=== PATIENT | female | born 1970 | race Caucasian/White ===

== ENCOUNTER 2019-02-05 22:06 | Observation (INO) | payer BC ==
[2019-02-05] MEDS ORDERED: MORPHINE SULFATE 4 MG/ML SYRINGE IM STA (23:05)
[2019-02-05] MEDS ORDERED: DIAZEPAM 5 MG TAB PO STA (23:52)
--- NOTE | 2019-02-06 00:23 | CT ---
EXAM: CT Thoracic Spine Without Intravenous Contrast CLINICAL HISTORY: Pain TECHNIQUE: Axial computed tomography images of the thoracic spine without intravenous contrast. CTDI is 0.085, 0.085, 8 mGy and DLP is 341.5 mGy- cm. This CT exam was performed using one or more of the following dose reduction techniques: automated exposure control, adjustment of the mA and/or kV according to patient size, and/or use of iterative reconstruction technique. COMPARISON: No relevant prior studies available. FINDINGS: Vertebrae: Age indeterminate but likely acute compression deformity of T8 and T11 with minimal height loss. Discs/spinal canal/neural foramina: No acute findings. No spinal canal stenosis. Soft tissues: Unremarkable. IMPRESSION: Age indeterminate but likely acute compression deformity of T8 and T11 with minimal height loss.
--- NOTE | 2019-02-06 00:29 | CT ---
EXAM: CT Chest Without Intravenous Contrast CLINICAL HISTORY: Pain TECHNIQUE: Axial computed tomography images of the chest without intravenous contrast. CTDI is 0.085, 0.085, 8 mGy and DLP is 341.5 mGy-cm. This CT exam was performed using one or more of the following dose reduction techniques: automated exposure control, adjustment of the mA and/or kV according to patient size, and/or use of iterative reconstruction technique. COMPARISON: No relevant prior studies available. FINDINGS: Lungs: Dependent atelectasis. Pleural space: Trace bilateral pleural effusions. No pneumothorax. Heart: Unremarkable. No cardiomegaly. No significant pericardial effusion. Bones/joints: Age-indeterminate, probably acute, compression deformities at T8 and T11 with minimal height loss. No dislocation. Soft tissues: Unremarkable. Vasculature: Unremarkable. No thoracic aortic aneurysm. Lymph nodes: Unremarkable. IMPRESSION: 1. Age-indeterminate, probably acute, compression deformities at T8 and T11 with minimal height loss. 2. Trace bilateral pleural effusions.
[2019-02-06] MEDS ORDERED: HYDROmorphone 1 MG/ML 1 ML SYRINGE IVP STA (00:53)
[2019-02-06] MEDS ORDERED: NALOXONE 0.4 MG/ML 1 ML VIAL IV PRN (00:54)
--- NOTE | 2019-02-06 00:54 | ED ---
Back Pain HPI - General Chief Complaint: Back Pain/Injury Stated Complaint: Back pain Time Seen by Provider: 02/05/19 22:29 Source: patient Limitations: no limitations - History of Present Illness Initial Comments: The patient is a 48 year old female who presents to the emergency room with complaint of a 2 week history of right-sided thoracic back pain. The patient denies any trauma. She admits the pain has been getting worse. She describes it as muscle spasms to the right of her spine. No history of back pain in the past. She denies any associated fevers or chills. She saw a chiropractor on the . States that after her manipulation she felt much worse. She called her doctor who told her to go to an urgent care to get imaging. She states she went to [facility] however they refused her x-rays as she did not have trauma. They did however provide her with prescriptions for pain medications. States she's been taking them as directed however they have not been helping her symptoms. She is not sure which medication they are. She does admit that the Toradol that she was provided at the urgent care did help only for a short period of time. She has been taking Motrin at home. She also took a Flexeril that she had which was old. States that it took the edge off. She has a appointment scheduled with her primary care physician on Wednesday however she states her pain was so bad that she had come in to the emergency room immediately. She denies any IV drug use. She denies any weakness of her upper or lower extremity. No unilateral numbness or tingling. No weakness in her legs. The pain is made worse with position changes. Denies any saddle anesthesia or bowel or bladder incontinence. No other alleviating, precipitating or modifying factors - Related Data Home Medications Medication Instructions Recorded Confirmed Cyclobenzaprine [Flexeril] 10 mg PO ONCE PRN 02/05/19 02/05/19 Ibuprofen [Motrin Ib] 800 mg PO TID PRN 02/05/19 02/05/19 Allergies Allergy/AdvReac Type Severity Reaction Status Date / Time No Known Allergies Allergy Verified 02/05/19 22:29 Review of Systems ROS Statement: Those systems with pertinent positive or pertinent negative responses have been documented in the HPI. ROS Other: All systems not noted in ROS Statement are negative. Past Medical History Past Medical History: No Reported History History of Any Multi-Drug Resistant Organisms: None Reported Past Surgical History: Section, Orthopedic Surgery Additional Past Surgical History / Comment(s): ovarian cyst Past Psychological History: No Psychological Hx Reported Smoking Status: Current every day smoker Past Alcohol Use History: Occasional Past Drug Use History: None Reported - Past Family History Mother Family Medical History: Diabetes Mellitus, Myocardial Infarction ([place]) Additional Family Medical History / Comment(s): of heart attack Father Family Medical History: Hyperlipidemia, Hypertension General Exam Limitations: no limitations General appearance: alert, in no apparent distress Head exam: Present: atraumatic, normocephalic, normal inspection Eye exam: Present: normal appearance, PERRL, EOMI. Absent: scleral icterus, conjunctival injection, periorbital swelling ENT exam: Present: normal exam, mucous membranes moist Neck exam: Present: normal inspection. Absent: tenderness, meningismus, lymphadenopathy Respiratory exam: Present: normal lung sounds bilaterally. Absent: respiratory distress, wheezes, rales, rhonchi, stridor Cardiovascular Exam: Present: regular rate, normal rhythm, normal heart sounds. Absent: systolic murmur, diastolic murmur, rubs, gallop, clicks GI/Abdominal exam: Present: soft, normal bowel sounds. Absent: distended, tenderness, guarding, rebound, rigid Extremities exam: Present: normal inspection, full ROM, normal capillary refill, other (The patient has 5 out of 5 muscle strength in her bilateral lower extremity to include her hip flexors, knee extensors, ankle and great toe dorsiflexors and plantar flexors. She has 2 out of 4 Achilles and patellar reflexes. Intact 2 point discrimination and soft touch over the medial, lateral, and dorsal aspect of the leg.). Absent: tenderness, pedal edema, joint swelling, calf tenderness Back exam: Present: normal inspection, tenderness, paraspinal tenderness, vertebral tenderness, other (The patient does have tenderness to the paraspinal musculature from T2 to T7. She also has spinous process tenderness in this region. No step-offs or deformities appreciated. No ecchymosis or rash.) Neurological exam: Present: alert, oriented X3, CN II-XII intact, reflexes normal Psychiatric exam: Present: normal affect, normal mood Skin exam: Present: warm, dry, intact, normal color. Absent: rash Course Vital Signs 02/05/19 22:07 Temperature 98.1 F Pulse Rate 71 Respiratory 18 Rate Blood Pressure 143/86 O2 Sat by Pulse 98 Oximetry Medical Decision Making - Medical Decision Making On arrival the patient was placed into room 13. I did provide the patient with 4 mg of IM morphine. I did recommend CT of the patient's thorax as well as her thoracic spine. The patient is reevaluated and continues to report muscle spasms. She is then given 5 mg of Valium. The patient was sent for imaging. Upon return the patient is still tearful in the exam room because of pain. I did obtain IV access and the patient was given 1 mg of Dilaudid. I discussed the results with the patient. Her imaging does demonstrate acute compression fractures of T8 and T11. The patient continues to have intractable back pain. Because of this I did recommend admission to the hospital. The patient is agreeable to this. She was admitted to Dr. Westfall service. Bridging orders were placed. I will consult Dr. Patterson to evaluate the patient the morning. I did place an order for a CBC, BMP and urinalysis. The patient remained in stable condition was transported to floor. - Differential Diagnosis Acute thoracic back pain, acute compression fractures, acute leukocytosis - Lab Data Result diagrams: 02/06/19 01:23 02/06/19 01:23 - Radiology Data Radiology results: report reviewed Disposition Clinical Impression: Thoracic back pain, Compression fracture Disposition: ADMITTED IP TO THIS [facility] Condition: Stable Is patient prescribed a controlled substance at d/c from ED?: No Decision to Admit Reason: Admit from EC Decision Date: 02/06/19 Decision Time: 00:54
[2019-02-06 01:38] LABS: Anion Gap 12 mmol/L; Blood Urea Nitrogen 14 mg/dL (7-17); Calcium 10.1 mg/dL (8.4-10.2); Carbon Dioxide 20 mmol/L (22-30); Chloride 105 mmol/L (98-107); Glucose 115 mg/dL (74-99); Potassium 4.2 mmol/L (3.5-5.1); Sodium 137 mmol/L (137-145)
[2019-02-06 01:44] LABS: Basophils # (A) 0.1 k/uL (0-0.2); Basophils % (A) 0 %; Eosinophils # (A) 0.4 k/uL (0-0.7); Eosinophils % (A) 3 %; HCT 38.1 % (34.0-46.0); HGB 12.9 gm/dL (11.4-16.0); Lymphocytes # (A) 2.8 k/uL (1.0-4.8); Lymphocytes % (A) 17 %; MCH 30.3 pg (25.0-35.0); MCV 89.2 fL (80.0-100.0); Mean Platelet Volume 7.2; Monocytes # (A) 0.7 k/uL (0-1.0); Monocytes % (A) 4 %; Neutrophils # (A) 12.9 k/uL (1.3-7.7); Neutrophils % (A) 76 %; Platelet Count 452 k/uL (150-450); RBC 4.27 m/uL (3.80-5.40); RDW 12.1 % (11.5-15.5)
[2019-02-06] MEDS: HYDROmorphone 1 MG/ML 1 ML SYRINGE IVP PRN ×7 (03:36→22:54)
[2019-02-06 10:03] LABS: Appearance,Urine Clear (Clear); Bilirubin,Urine Negative (Negative); Blood,Urine Negative (Negative); Color,Urine Yellow; Glucose,Urine (UA) Negative (Negative); Ketones,Urine Negative (Negative); Leukocyte Esterase,Urine Negative (Negative); Nitrite,Urine Negative (Negative); Protein,Urine Negative (Negative); Specific Gravity,Urine 1.012 (1.001-1.035); Urobilinogen,Urine <2.0 mg/dL (<2.0)
[2019-02-06] MEDS: PANTOPRAZOLE 40 MG/10 ML VIAL IVP SCH (14:49)
--- NOTE | 2019-02-06 15:20 | P.HPIM ---
History of Present Illness H&P Date: 02/06/19 Chief Complaint: Right-sided thoracic/back pain This is a 48-year-old female presented to the ER with right-sided thoracic/back pain, ongoing for 2 weeks in a patient who is nicotine dependent. Denies fall/trauma. Denies fever or chills. Apparently patient had gone to her chiropractor on January 30 with manipulation completed. No x-rays taken at that time. Continued having spasms of the midsection area. [facility]ceeded to [facility], no x-ray taken. Prescriptions given for pain management. Pain and spasms persisted. Began taking some Flexeril( prior RX) and Motrin with minimal improvement. Scheduled appointment with PCP, but unable to tolerate pain. Radiology films reporting compression fracture-possibly acute T 8 and T11. No bruising, no scratches visible. Worsens with position changes, denies incontinence or constipation. Denies loss of sensation. Received morphine, Valium, IV Dilaudid. Intractable back pain/spasms persisted. Orthopedic spinal surgery consulted. Review of Systems ROS Statement: Those systems with pertinent positive or pertinent negative responses have been documented in the HPI. ROS Other: All systems not noted in ROS Statement are negative. Past Medical History Past Medical History: No Reported History History of Any Multi-Drug Resistant Organisms: None Reported Past Surgical History: Section, Orthopedic Surgery Additional Past Surgical History / Comment(s): ovarian cyst Past Anesthesia/Blood Transfusion Reactions: No Reported Reaction Past Psychological History: No Psychological Hx Reported Smoking Status: Current every day smoker Past Alcohol Use History: Occasional Past Drug Use History: None Reported - Past Family History Mother Family Medical History: Diabetes Mellitus, Myocardial Infarction ([place]) Additional Family Medical History / Comment(s): of heart attack Father Family Medical History: Hyperlipidemia, Hypertension Medications and Allergies Home Medications Medication Instructions Recorded Confirmed Type Cyclobenzaprine [Flexeril] 10 mg PO ONCE PRN 02/05/19 02/05/19 History Ibuprofen [Motrin Ib] 800 mg PO TID PRN 02/05/19 02/05/19 History Allergies Allergy/AdvReac Type Severity Reaction Status Date / Time No Known Allergies Allergy Verified 02/05/19 22:29 Physical Exam Vitals: Vital Signs Temp Pulse Pulse Resp BP BP Pulse Ox 02/06/19 05:45 97 F L 109 H 18 122/71 95 02/06/19 03:34 98 20 02/06/19 02:54 98.4 F 98 20 122/75 98 02/06/19 02:30 98 20 02/05/19 22:07 98.1 F 71 18 143/86 98 Intake and Output 02/05/19 02/06/19 02/06/19 22:59 06:59 14:59 Intake Total 120 Balance 120 Intake: Amount of Fluid Infused ( 20 ml) Oral 100 Other: Voiding Method Bedpan # Voids 1 Weight 75.75 kg 76 kg PHYSICAL EXAM: VITAL SIGNS: As above GENERAL: Sitting up in bed, no acute distress HEENT: Conjunctivae normal. eyes normal. Oral mucosa moist NECK: No JVD. No thyroid enlargement. No LNs CARDIOVASCULAR: S1, S2 muffled. No murmur RESPIRATION: Breath sounds diminished in the bases. No rhonchi or crackles. No bronchial breathing. ABDOMEN: Soft, nontender . No guarding. no masses palpable. Bowel sounds heard. LEGS: No edema. no swelling PSYCHIATRY: Alert and oriented -3, mood and affect normal. NERVOUS SYSTEM: Cranial N 2-12 grossly normal. Moves all 4 limbs. No focal deficits. Strength and sensation grossly intact. Paraspinal /vertebral tenderness right midsection ( T6-T10). No lesions, no rash, no bruising, no scratches. Skin: no ulcer no rash Joints: No active swelling. No inflammation. Lymphatic system. No LN neck axilla or groin. Results CBC & Chem 7: 02/06/19 01:23 02/06/19 01:23 Labs: Abnormal Lab Results - Last 24 Hours (Table) 02/06/19 02/06/19 Range/Units 01:23 01:23 WBC 17.0 H (3.8-10.6) k/uL Plt Count 452 H (150-450) k/uL Neutrophils # 12.9 H (1.3-7.7) k/uL Carbon Dioxide 20 L (22-30) mmol/L Glucose 115 H (74-99) mg/dL Thrombosis Risk Factor Assmnt - Choose All That Apply Any of the Below Risk Factors Present?: Yes Each Factor Represents 1 point: Age 41-60 years, Obesity (BMI >25) Other Risk Factors: No Thrombosis Risk Factor Assessment Total Risk Factor Score: 2 Thrombosis Risk Factor Assessment Level: Low Risk Assessment and Plan Assessment: -Thoracic Back pain, compression fracture T8 and T11, possibly acute -Leukocytosis, possibly reactive -Ongoing nicotine dependence Plan: Continue on current medication regime ,PPI,monitoring and symptomatic treatment. Orthopedic spine surgery consulted with recommendations pending. Potential brace. Pain management. Further recommendations to follow. The impression and plan of care has been dictated as directed. : I performed a history and examination of this patient, discussed the same with the dictator. I agree with the dictator's note ,documented as a scribe. Any additional findings or plans will be noted. Time taken: 35 minutes
--- NOTE | 2019-02-06 16:03 | P.CNOR ---
<Sarabjit Reilly - Last Filed: 02/06/19 15:52> History of Present Illness - [facility] Consult date: 02/06/19 Requesting physician: Monse Sotelo Consult reason: fracture (T8 and T11 superior endplate compression fracture deformities), back pain (Thoracic back pain) History of present illness: Patient is a pleasant 48-year-old female who is seen and examined at the bedside for further evaluation of compression fracture deformities at T8 and T11. Patient states with the past 2 weeks she's had increased thoracic back pain without specific injury. She states she did have an episode approximately 2 weeks ago where she injured her right hand causing severe pain at which time she passed out due to the pain. Her family at the bedside states she had a seizure- like episode at that time when she passed out. She was not evaluated in the emergency department or other urgent care facility in regards to this seizure- like episode. She has not followed with her primary care provider. Her family states she has had seizure-like episodes previously when passing out due to pain. They are not sure if this incident is when her thoracic back pain started but she states her pain has been ongoing for approximately 2 weeks and cannot think of any other known injury. She does admit to further exacerbation of her pain following chiropractic manipulation. She has significant difficulty with mobility due to her pain. She feels severe spasms within her thoracic spine. She has difficulty with sitting and lying down. Her back pain is exacerbated with coughing and sneezing. She denies any lower extremity weakness or radiculopathy bilaterally. She has experienced some pain radiating around the ribs towards the anterior bilaterally. She presented to the emergency department on 02/05/[address] imaging of the thoracic spine did show evidence of compression fracture deformities at T8 and T11. She's had difficulty with pain control at the hospital without regularly dosing of narcotic pain medications. Her pain has been controlled with Dilaudid IV which has helped control her pain when given. She is not currently on a muscle relaxer. She denies any other specific notable medical diagnoses. Past Medical History Past Medical History: No Reported History History of Any Multi-Drug Resistant Organisms: None Reported Past Surgical History: Section, Orthopedic Surgery Additional Past Surgical History / Comment(s): ovarian cyst Past Anesthesia/Blood Transfusion Reactions: No Reported Reaction Past Psychological History: No Psychological Hx Reported Smoking Status: Current every day smoker Past Alcohol Use History: Occasional Past Drug Use History: None Reported - Past Family History Mother Family Medical History: Diabetes Mellitus, Myocardial Infarction ([place]) Additional Family Medical History / Comment(s): of heart attack Father Family Medical History: Hyperlipidemia, Hypertension Medications and Allergies Home Medications Medication Instructions Recorded Confirmed Type Cyclobenzaprine [Flexeril] 10 mg PO ONCE PRN 02/05/19 02/05/19 History Ibuprofen [Motrin Ib] 800 mg PO TID PRN 02/05/19 02/05/19 History Allergies Allergy/AdvReac Type Severity Reaction Status Date / Time No Known Allergies Allergy Verified 02/05/19 22:29 Physical Examination Physical exam: Patient is awake, alert, and oriented 3 Vital signs stable Good chest excursion with deep inspiration and expiration Abdomen soft nontender Examination of thoracic and lumbar spine reveals skin is intact with no abrasions, lacerations, or bruises; no erythema, purulence or signs of infection Significant pain with palpation over the mid to lower thoracic spine No specific pain on palpation over the lower lumbar spine Evidence of a tattoo along the midline of the lower lumbar spine Dorsiflexion, plantarflexion, and extensor hallucis longus positive sustained bilaterally Lower extremity strength positive sustained throughout range of motion but generally slower due to pain Patient changes positions slowly Patient is able to stand on toes and heels bilaterally but has difficulty No signs or symptoms of DVT; no calf pain Neurovascularly intact Results Pertinent studies: CT of the thoracic spine taken on 02/05/2019: T8 and T11 superior endplate compression fracture deformities with mild height loss which are age indeterminate but likely acute; no evidence of spinal canal stenosis CT chest without contrast taken on 02/05/2019: Compression fracture deformities at T8 and T11 with mild superior endplate height loss that are age determinant but probably acute; trace bilateral. No effusion - Labs Labs: Abnormal Lab Results - Last 24 Hours (Table) 02/06/19 02/06/19 Range/Units 01:23 01:23 WBC 17.0 H (3.8-10.6) k/uL Plt Count 452 H (150-450) k/uL Neutrophils # 12.9 H (1.3-7.7) k/uL Carbon Dioxide 20 L (22-30) mmol/L Glucose 115 H (74-99) mg/dL H & H 02/06/19 Range/Units 01:23 Hgb 12.9 (11.4-16.0) gm/dL Hct 38.1 (34.0-46.0) % Result Diagrams: 02/06/19 01:23 02/06/19 01:23 Assessment and Plan Assessment: Assessment: T8 and T11 acute compression fracture deformities without specific injury Intractable thoracic back pain Thoracic muscle spasm Thoracic radiculopathy (1) Compression fracture of T11 vertebra Current Visit: Yes Status: Acute Code(s): S22.080A - WEDGE COMPRESSION FRACTURE OF T11-T12 VERTEBRA, INIT SNOMED Code(s): 609710025 (2) Thoracic radiculopathy Current Visit: Yes Status: Acute Code(s): M54.14 - RADICULOPATHY, THORACIC REGION SNOMED Code(s): 72309463 (3) Compression fracture of T8 vertebra Current Visit: Yes Status: Acute Code(s): S22.060A - WEDGE COMPRESSION FRACTURE OF T7-T8 VERTEBRA, INIT SNOMED Code(s): 374794715 (4) Thoracic back pain Current Visit: Yes Status: Acute Code(s): M54.6 - PAIN IN THORACIC SPINE SNOMED Code(s): 520474513 (5) Spasm of thoracic back muscle Current Visit: Yes Status: Acute Code(s): M62.830 - MUSCLE SPASM OF BACK SNOMED Code(s): 311982454300545 Plan: Plan: 1. After physical examination of the patient, further discussion with the patient, and reviewing of imaging, we are currently planning to continue with conservative treatment at this time. She does have evidence of compression fracture deformities on imaging at T8 and T11. She does have pain with palpation of thoracic spine at approximately these levels. She does have difficulty any sort of mobilization due to her thoracic back pain. Her back pain is exacerbated with coughing and sneezing. It is difficult to determine the exact cause of her fractures as she does not have known specific injury but her symptoms appear to be acute in nature over the past 2 weeks. She does admit her pain has worsened following chiropractic manipulation. At this time, we will plan for bracing. A prescription has been written, signed, and provided to case management for a Spinomed TLSO brace. Once this brace has been delivered and fitted appropriately, patient should wear this brace while sitting upright at greater than 45, during increase activities, during ambulation. Brace does not have to be worn while lying in bed or when bathing. Once this brace has been delivered and fitted appropriately patient be cleared for discharge from orthopedic spine standpoint. We will plan have the patient follow-up in the outpatient setting approximately 2-3 weeks for further evaluation. At discharge she may follow-up with Sarabjit Reilly PA-C or Dr. Ervin Lawson at [facility]. 2. Continue pain control medications as prescribed 3. We will plan to prescribe Flexeril 10 mg 3 times a day as needed for muscle spasm 4. Patient will continue to be seen and examined by medicine 5. Patient has been discussed in detail with Dr. Ervin Lawson Time with Patient: Greater than 30 (Including obtaining history, physical ex amination, reviewing of imaging, and dictation.) <Carolynn Lawson - Last Filed: 02/06/19 16:20> Physical Examination Osteopathic Statement: *. No significant issues noted on an osteopathic structural exam other than those noted in the History and Physical/Consult. Results - Labs Labs: Abnormal Lab Results - Last 24 Hours (Table) 02/06/19 02/06/19 Range/Units 01:23 01:23 WBC 17.0 H (3.8-10.6) k/uL Plt Count 452 H (150-450) k/uL Neutrophils # 12.9 H (1.3-7.7) k/uL Carbon Dioxide 20 L (22-30) mmol/L Glucose 115 H (74-99) mg/dL H & H 02/06/19 Range/Units 01:23 Hgb 12.9 (11.4-16.0) gm/dL Hct 38.1 (34.0-46.0) % Result Diagrams: 02/06/19 01:23 02/06/19 01:23 Assessment and Plan Plan: The patient is seen and examined at bedside. She is in significant pain and is out of bed walking around her room. She says she has difficulty with any position and has to walk around from time to time. She feels she has severe spasms in her mid back. She does not remember specific incident but she did pass out and her feels like she may have had some sort of seizure activity but this is unconfirmed. She is uncertain of any specific trauma to her back in the past. She denies any changes in bowel bladder function denies any changes in her lower extremities. She does not have acute worsening with coughing and sneezing. Her images and computed tomography scan of her thoracic spine is reviewed. There is fracture lines at T8 and slight compression at T11. There does not appear to be any bone loss or distractive course at the vertebral bodies but difficult to ascertain her specific pain. Intractable thoracic back pain T8 and T11 compression deformities without specific etiology No neurologic change With the patient's severe symptoms I think that we need to obtain further imaging with MRI to rule out other process through her thoracic spine. We have ordered a brace and muscle relaxants which should help with spasms and some stability control. I reviewed the dictation above and discussed the case and imaging with Sarabjit Lopez as stated. We will continue to follow her closely and monitor test results.
[2019-02-06] MEDS: CYCLOBENZAPRINE 10 MG TAB PO PRN (16:14)
[2019-02-07] MEDS: HYDROmorphone 1 MG/ML 1 ML SYRINGE IVP PRN ×6 (04:26→22:54)
[2019-02-07] MEDS: CYCLOBENZAPRINE 10 MG TAB PO PRN ×3 (04:37→19:22)
[2019-02-07] MEDS: PANTOPRAZOLE 40 MG/10 ML VIAL IVP SCH (08:47)
[2019-02-07] MEDS ORDERED: DIAZEPAM 5 MG TAB PO STA (09:10)
[2019-02-07 09:34] LABS: Basophils # (A) 0.1 k/uL (0-0.2); Basophils % (A) 1 %; Eosinophils # (A) 0.4 k/uL (0-0.7); Eosinophils % (A) 2 %; HCT 41.5 % (34.0-46.0); HGB 13.5 gm/dL (11.4-16.0); Lymphocytes # (A) 3.4 k/uL (1.0-4.8); Lymphocytes % (A) 20 %; MCH 29.2 pg (25.0-35.0); MCHC 32.5 g/dL (31.0-37.0); MCV 89.6 fL (80.0-100.0); Mean Platelet Volume 7.2; Monocytes # (A) 0.6 k/uL (0-1.0); Monocytes % (A) 4 %; Neutrophils # (A) 12.3 k/uL (1.3-7.7); Neutrophils % (A) 72 %; Platelet Count 494 k/uL (150-450); RBC 4.63 m/uL (3.80-5.40); RDW 12.2 % (11.5-15.5)
[2019-02-07 09:58] LABS: Anion Gap 9 mmol/L; Blood Urea Nitrogen 11 mg/dL (7-17); Calcium 10.1 mg/dL (8.4-10.2); Carbon Dioxide 29 mmol/L (22-30); Chloride 101 mmol/L (98-107); Glucose 88 mg/dL (74-99); Potassium 5.3 mmol/L (3.5-5.1); Sodium 139 mmol/L (137-145)
[2019-02-07] MEDS ORDERED: DOCUSATE 100 MG CAP PO PRN (11:23)
--- NOTE | 2019-02-07 11:36 | MR ---
Thoracic spine MRI history: Compression fractures Correlation to CT scan 02/05/2018 Multiplanar multisequence imaging through the thoracic spine The superior endplate depressions at T8 and T11 are again noted. Intermediate signal noted on T1-weig hted images, mildly increased signal noted on T2-weighted sequences. Focal increased signal within th e T8 vertebral body to the left of midline T1 and T2-weighted sequences is compatible with hemangioma . There is no significant foraminal encroachment, spinal stenosis, or disc herniation. Disc spaces ar e maintained. Thoracic vertebral bodies are otherwise normal. Some facet arthropathy changes noted at the lower thoracic spine. Small bilateral pleural effusions are present and noted incidentally. Thor acic cord signal is maintained. IMPRESSION: Findings compatible with subacute superior endplate compression fractures.
--- NOTE | 2019-02-07 12:24 | P.PN ---
Progress Note - Text Progress Note Date: 02/07/19 Patient is a pleasant 48-year-old female who is seen and examined at the bedside for follow-up evaluation of compression fracture deformities at T8 and T11. Patient states with the past 2 weeks she's had increased thoracic back pain without specific injury. She states she did have an episode approximately 2 weeks ago where she injured her right hand causing severe pain at which time she passed out due to the pain. Her family at the bedside states she had a seizure- like episode at that time when she passed out. She was not evaluated in the emergency department or other urgent care facility in regards to this seizure- like episode. She has not followed with her primary care provider. Her family states she has had seizure-like episodes previously when passing out due to pain. They are not sure if this incident is when her thoracic back pain started but she states her pain has been ongoing for approximately 2 weeks and cannot think of any other known injury. She does admit to further exacerbation of her pain following chiropractic manipulation. She has not had any significant improvement of her symptoms since being seen and examined yesterday. She has significant difficulty with mobility due to her pain. She feels severe spasms within her thoracic spine. She has difficulty with sitting and lying down. Her back pain is exacerbated with coughing and sneezing. She denies any lower extremity weakness or radiculopathy bilaterally. She has experienced some pain radiating around the ribs towards the anterior bilaterally. She presented to the emergency department on 02/05/[address] imaging of the thoracic spine did show evidence of compression fracture deformities at T8 and T11. She's had difficulty with pain control at the hospital without regularly dosing of narcotic pain medications. Her pain has been controlled with Dilaudid IV which has helped control her pain when given. Since being seen and examined examined yesterday she was fitted with a Spinomed TLSO brace. She states this brace has provided some improvement of her symptoms when is intact. She has been taking Flexeril as prescribed but does continue to have significant. She is scheduled to undergo a thoracic MRI this morning at approximately 9:10 AM. She denies any other specific notable medical diagnoses. Physical exam: Patient is awake, alert, and oriented 3 Vital signs stable Good chest excursion with deep inspiration and expiration Abdomen soft nontender Examination of thoracic and lumbar spine reveals skin is intact with no abrasions, lacerations, or bruises; no erythema, purulence or signs of infection Significant pain with palpation over the mid to lower thoracic spine No specific pain on palpation over the lower lumbar spine Evidence of a tattoo along the midline of the lower lumbar spine Dorsiflexion, plantarflexion, and extensor hallucis longus positive sustained bilaterally Lower extremity strength positive sustained throughout range of motion but generally slower due to pain Patient changes positions slowly Patient is able to stand on toes and heels bilaterally but has difficulty No signs or symptoms of DVT; no calf pain Neurovascularly intact Pertinent studies: MRI of the thoracic spine taken on 02/07/2019: Superior endplate compression fracture deformities at T8 and T11 compatible with subacute fracture; no evidence of significant neural foraminal stenosis or spinal canal stenosis; overall alignment appears to be adequately maintained; lower thoracic facet arthropathy CT of the thoracic spine taken on 02/05/2019: T8 and T11 superior endplate compression fracture deformities with mild height loss which are age indeterminate but likely acute; no evidence of spinal canal stenosis CT chest without contrast taken on 02/05/2019: Compression fracture deformities at T8 and T11 with mild superior endplate height loss that are age determinant but probably acute; trace bilateral. No effusion Assessment: T8 and T11 acute compression fracture deformities without specific injury Intractable thoracic back pain Thoracic muscle spasm Thoracic radiculopathy Lower thoracic facet arthropathy Plan: 1. After physical examination of the patient, further discussion with the patient, and reviewing of imaging, we are currently planning to continue with conservative treatment at this time. Thoracic MRI imaging has been reviewed by myself and Dr. Ervin Lawson. She does have evidence of compression fracture deformities on imaging at T8 and T11. She does have pain with palpation of thoracic spine at approximately these levels. She does have difficulty any sort of mobilization due to her thoracic back pain. Her back pain is exacerbated with coughing and sneezing. It is difficult to determine the exact cause of her fractures as she does not have known specific injury but her symptoms appear to be acute in nature over the past 2 weeks. She does admit her pain has worsened following chiropractic manipulation. Since being seen and examined yesterday, a Spinomed TLSO brace has been delivered and fitted appropriately. Patient should wear this brace while sitting upright at greater than 45, during increase activities, during ambulation. Brace does not have to be worn while lying in bed or when bathing. Patient will be cleared for discharge from an orthopedic spine standpoint once her pain is more adequately controlled. We will plan have the patient follow-up in the outpatient setting approximately 2-3 weeks for further evaluation. At discharge she may follow-up with Sarabjit Reilly PA-C or Dr. Ervin Lawson at [facility]. 2. Continue pain control medications as prescribed; We will plan to prescribe Toradol 30 mg IV every 12 hours to see if this will help to provide better pain control 3. We will plan to prescribe Flexeril 10 mg 3 times a day as needed for muscle spasm 4. Patient will continue to be seen and examined by medicine 5. Patient has been discussed in detail with Dr. Ervin Lawson who agrees with this plan
[2019-02-07] MEDS: KETOROLAC 30 MG/ML 1 ML VIAL IVP PRN (14:00)
[2019-02-07 21:06] VITALS: TEMP 97.9
[2019-02-08] MEDS ORDERED: KETOROLAC 30 MG/ML 1 ML VIAL ONE (01:45)
[2019-02-08] MEDS ORDERED: HYDROmorphone 1 MG/ML 1 ML SYRINGE ONE (01:45)
[2019-02-08] MEDS: HYDROmorphone 1 MG/ML 1 ML SYRINGE IVP PRN (05:25)
[2019-02-08] MEDS: CYCLOBENZAPRINE 10 MG TAB PO PRN (05:25)
[2019-02-08 06:02] VITALS: BP 108/70; PULSE 81; RESP 16
[2019-02-08] MEDS ORDERED: PANTOPRAZOLE 40 MG TABLET PO SCH (09:00)
[2019-02-08] MEDS: KETOROLAC 30 MG/ML 1 ML VIAL IVP PRN (10:09)
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
== END 2019-02-08 12:00 | disposition home or self-care (01) ==
LOC: EC 22:06 → 4MS4W 02-06 00:55
PROVIDERS: ADMIT Family Medicine; ATTEND Family Medicine
DX: M48.54XA Collapsed vertebra, not elsewhere classified, thoracic region, initial encounter for fracture (principal); D72.829 Elevated white blood cell count, unspecified; F17.200 Nicotine dependence, unspecified, uncomplicated; M46.94 Unspecified inflammatory spondylopathy, thoracic region; E66.9 Obesity, unspecified; Z68.27 Body mass index [BMI] 27.0-27.9, adult; M54.14 Radiculopathy, thoracic region; Z83.3 Family history of diabetes mellitus; Z82.49 Family history of ischemic heart disease and other diseases of the circulatory system; Z79.899 Other long term (current) drug therapy
CPT/HCPCS: 96376 ×3; 96375 ×2; 96372; 96374; 99284; 80048 ×2; 85025 ×2; 81003; 83970; 72128; 71250; 72146; G0378 ×3; J2270; J1885 ×2; J1170 ×3; C9113 ×2

== ENCOUNTER 2019-02-22 13:20 | Observation (INO) | payer BC ==
[~2019-02-22 13:20] MED LIST: DEXAMETHASONE SOD PHOSPHATE 10 MG/ML 1 ML VIAL IV ONE; LIDOCAINE 1% 20 ML VIAL (10MG/ML) FOR IV START INTRADERMA PRN; METOCLOPRAMIDE 5 MG/ML 2 ML VIAL IVP PRN; ONDANSETRON 4 MG/2 ML VIAL IVP ONE; Pre Op ABX Message 1 EACH MISC MISCELLANE ONE; SCOPOLAMINE 1.5MG/72HR PATCH TRANSDERM ONE; SODIUM CHLORIDE 0.9% IRRIGATIO 1,000 ML IRRIGATION ONE; ceFAZolin IN SWFI 2 GM/20 ML SYRINGE IVP ONE
[2019-02-22] MEDS ORDERED: LACTATED RINGERS 1,000 ML IV ONE ×2 (13:34→16:02)
[2019-02-22] MEDS ORDERED: LIDOCAINE 1% 20 ML VIAL (10MG/ML) FOR IV START INTRADERMA ONE (13:39)
[2019-02-22] MEDS ORDERED: fentaNYL (PF) 50 MCG/ML 2 ML AMP IVP ONE (13:45)
[2019-02-22] MEDS ORDERED: ePHEDrine SULFATE/0.9% NACL/PF 50 MG/5 ML SYRINGE IV ONE (15:08)
[2019-02-22] MEDS ORDERED: HYDROmorphone (PF) 1 MG/ML ONE (15:08)
[2019-02-22] MEDS ORDERED: IOPAMIDOL M200 10 ML VIAL MISCELLANE ONE (15:08)
[2019-02-22] MEDS ORDERED: SUCCINYLCHOLINE CHLORIDE 100 MG/5 ML SYR IV ONE (15:08)
[2019-02-22] MEDS ORDERED: LIDOCAINE 1% INJ 10MG/ML (20 ML MDV) ONE (15:08)
[2019-02-22] MEDS ORDERED: LIDOCAINE 0.5%-EPI 1:200,000 50 ML VIAL SQ ONE (15:08)
[2019-02-22] MEDS ORDERED: PROPOFOL 10 MG/ML 20 ML VIAL IV ONE (15:08)
[2019-02-22] MEDS ORDERED: fentaNYL (PF) 50 MCG/ML 2 ML AMP ONE (15:08)
[2019-02-22] MEDS ORDERED: MIDAZOLAM 2 MG/2 ML VIAL ONE (15:08)
[2019-02-22] MEDS: HYDROmorphone 0.5 MG/0.5 ML SYRINGE IVP PRN ×4 (16:17→16:53)
[2019-02-22] MEDS ORDERED: KETOROLAC 30 MG/ML 1 ML VIAL IVP PRN (16:18)
[2019-02-22] MEDS ORDERED: HYDROmorphone 0.5 MG/0.5 ML SYRINGE IVP PRN (16:18)
[2019-02-22] MEDS ORDERED: BENZOCAINE/MENTHOL LOZENG 1 EACH LOZENGE MUCOUS MEM PRN (16:18)
[2019-02-22] MEDS ORDERED: ONDANSETRON 4 MG/2 ML VIAL IVP PRN (16:18)
[2019-02-22] MEDS ORDERED: HYDROcodone/APAP 5-325MG 1 EACH TAB PO PRN (16:18)
[2019-02-22] MEDS ORDERED: IBUPROFEN 600 MG TAB PO PRN (16:18)
[2019-02-22] MEDS ORDERED: HYDROmorphone 1 MG/ML 1 ML SYRINGE IVP PRN (16:18)
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
[2019-02-22] MEDS ORDERED: MEPERIDINE 50 MG/ML SYRINGE IVP ONE ×2 (16:33→16:45)
[2019-02-22] MEDS ORDERED: diphenhydrAMINE 50 MG/ML 1 ML VIAL IVP ONE ×2 (16:59→17:08)
[2019-02-22] MEDS: HYDROcodone/APAP 5-325MG 1 EACH TAB PO PRN ×2 (17:55→21:48)
[2019-02-22 18:16] VITALS: BMI 27.1
[2019-02-22] MEDS: LACTATED RINGERS 1,000 ML IV SCH (18:25)
[2019-02-22] MEDS: SODIUM CHLORIDE 0.9% 1,000 ML IV SCH (18:26)
[2019-02-22] MEDS: KETOROLAC 30 MG/ML 1 ML VIAL IVP SCH ×3 (18:29→19:39)
[2019-02-22] MEDS: ceFAZolin IN SWFI 2 GM/20 ML SYRINGE IVP SCH (21:48)
[2019-02-23] MEDS: KETOROLAC 30 MG/ML 1 ML VIAL IVP SCH ×2 (01:03→06:15)
[2019-02-23 01:48] VITALS: TEMP 97.9
[2019-02-23] MEDS: HYDROcodone/APAP 5-325MG 1 EACH TAB PO PRN ×2 (04:42→09:34)
[2019-02-23] MEDS: LACTATED RINGERS 1,000 ML IV SCH (06:15)
[2019-02-23] MEDS: SODIUM CHLORIDE 0.9% 1,000 ML IV SCH (06:15)
[2019-02-23] MEDS: ceFAZolin IN SWFI 2 GM/20 ML SYRINGE IVP SCH (07:35)
[2019-02-23 07:48] VITALS: BP 118/78; PULSE 84; RESP 15
--- NOTE | 2019-02-23 08:30 | XR ---
Limited lumbar spine HISTORY: Kyphoplasty T8 and T11 4 intraoperative C-arm images document the procedure.
--- NOTE | 2019-02-23 08:30 | FL ---
Fluoroscopy HISTORY: Kyphoplasty 1 minute 16 seconds fluoroscopy time supplied to the referring clinician. 4 intraoperative C-arm matthew ges document the procedure. See dictated report from orthopedic surgery.
[2019-02-23] MEDS ORDERED: SENNOSIDES-DOCUSATE SODIUM 1 EACH TAB PO SCH (09:00)
--- NOTE | 2019-02-23 09:22 | P.DS ---
Providers Date of admission: 02/22/19 23:10 Attending physician: Carolynn Lawson Primary care physician: Eduard [facility] Course: The patient presented on the day of admission as per their operative note. She had a T8 and T11 compression fracture of uncertain etiology was having severe pain due to these despite brace use. She presented for kyphoplasty as per her operative note. She feels she is making progress postoperatively pain has changed. She feels the pain is improved and she is more mobile now. Physical Exam The incision site is clean dry and intact. There is no erythema no drainage. There is no purulence no evidence of infection. Abdomen soft and nontender. Chest has good excursion with deep inspiration and expiration. The patient has active and passive range of motion intact at the upper and lower extremities. There is no acute change in neurologic status. Hospital Course Postoperative day #1 status post kyphoplasty T8 and T11 for vertebral compression fracture of uncertain etiology The patient has been making good progress postoperatively. They have completed the prophylactic antibiotics without any signs or symptoms of infection. The patient has been able to advance their diet, and is tolerating diet adequately. The pain was initially controlled with IV medications and is now controlled appropriately with oral medications. The patient has been able to increase their mobilization. She is able to turn around the room. She feels she is having less pain at her back though she is still sore. Be sent to pathology biopsy is of T8 and T11 which are pending. The patient has progressed appropriately. I think they are in good stable condition for discharge today. They will be sent home with appropriate prescriptions. I answered their questions to the best of my ability in a language that they can understand and they are agreeable with the plan. They will follow up as directed in approximately 2 weeks or sooner if she is having any problems. Patient Condition at Discharge: Fair Plan - Discharge Summary Discharge Rx Participant: Yes New Discharge Prescriptions: No Action Docusate [Colace] 200 mg PO DAILY PRN #30 cap PRN Reason: Constipation Cyclobenzaprine [Flexeril] 10 mg PO TID PRN #21 tab PRN Reason: Muscle Spasm Ibuprofen [Motrin] 600 mg PO Q8HR PRN #21 tab PRN Reason: Pain HYDROcodone/APAP 5-325MG [[place] 5-325] 1 tab PO Q6HR PRN 3 Days #12 tab PRN Reason: Pain Multivitamins, Thera [Multivitamin (formulary)] 1 tab PO DAILY Melatonin Gummies 2 tab PO HS PRN PRN Reason: Insomnia Discharge Medication List Cyclobenzaprine [Flexeril] 10 mg PO TID PRN #21 tab 02/08/19 [Rx] Docusate [Colace] 200 mg PO DAILY PRN #30 cap 02/08/19 [Rx] HYDROcodone/APAP 5-325MG [[place] 5-325] 1 tab PO Q6HR PRN 3 Days #12 tab 02/08/19 [Rx] Ibuprofen [Motrin] 600 mg PO Q8HR PRN #21 tab 02/08/19 [Rx] Melatonin Gummies 2 tab PO HS PRN 02/15/19 [History] Multivitamins, Thera [Multivitamin (formulary)] 1 tab PO DAILY 02/15/19 [History] Follow up Appointment(s)/Referral(s): Carolynn Lawson DO [Doctor of Osteopathic Medicine] - 03/07/19 1:00 pm Eduard Hendrix DO [Primary Care Provider] - 03/02/19 2:20 pm Patient Instructions/Handouts: *Surgery [facility] - Scopalamine Patch Instructions
== END 2019-02-23 10:13 | disposition home or self-care (01) ==
LOC: OR 13:20 → 4SSUR 17:07 → OR 23:31
PROVIDERS: ADMIT Orthopaedic Surgery Orthopaedic Surgery of the Spine; ATTEND Orthopaedic Surgery Orthopaedic Surgery of the Spine
DX: M48.54XA Collapsed vertebra, not elsewhere classified, thoracic region, initial encounter for fracture (principal); M54.14 Radiculopathy, thoracic region; M62.830 Muscle spasm of back; F17.200 Nicotine dependence, unspecified, uncomplicated; Z79.899 Other long term (current) drug therapy; Z79.1 Long term (current) use of non-steroidal anti-inflammatories (NSAID); Z83.3 Family history of diabetes mellitus; Z82.49 Family history of ischemic heart disease and other diseases of the circulatory system
CPT/HCPCS: 22513; 22515; 97161; 81025; 84132; 88307; 88311; 72100; G0378 ×2; C1713; J2250; J1200; J2765; J2175; J2405; J2001; J3010; J1885; J1170 ×2; J0330; J2704; J0690 ×2; Q9966

== ENCOUNTER 2019-10-01 22:06 | Emergency (ER) | payer BC ==
[2019-10-01 22:18] VITALS: BP 144/80; PULSE 79; RESP 20; TEMP 97.2
[2019-10-01] MEDS ORDERED: IBUPROFEN 600 MG TAB PO STA (22:39)
[2019-10-01] MEDS ORDERED: LIDOCAINE 1% INJ 10MG/ML (20 ML MDV) SQ ONE (22:39)
[2019-10-01] MEDS ORDERED: ACETAMINOPHEN TAB 325 MG TAB PO STA ×2 (22:39→22:47)
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
== END 2019-10-01 23:07 | disposition home or self-care (01) ==
LOC: EC 22:06
DX: S61.211A Laceration without foreign body of left index finger without damage to nail, initial encounter (principal); F17.200 Nicotine dependence, unspecified, uncomplicated; W26.0XXA Contact with knife, initial encounter; Y93.89 Activity, other specified
CPT/HCPCS: 99282; 12002; J2001

== ENCOUNTER → 2019-11-08 | Day surgery (SDC) | payer BC ==
[2019-11-07 08:50] VITALS: BMI 26.2
[~2019-11-08] MED LIST changes: -DEXAMETHASONE SOD PHOSPHATE 10 MG/ML 1 ML VIAL IV ONE; +LACTATED RINGERS 1,000 ML IV SCH; -METOCLOPRAMIDE 5 MG/ML 2 ML VIAL IVP PRN; -ONDANSETRON 4 MG/2 ML VIAL IVP ONE; +PROPOFOL 10 MG/ML 20 ML VIAL IV ONE; -Pre Op ABX Message 1 EACH MISC MISCELLANE ONE; -SCOPOLAMINE 1.5MG/72HR PATCH TRANSDERM ONE; -SODIUM CHLORIDE 0.9% IRRIGATIO 1,000 ML IRRIGATION ONE; -ceFAZolin IN SWFI 2 GM/20 ML SYRINGE IVP ONE
[2019-11-08 10:29] VITALS: RESP 16; TEMP 97.3
--- NOTE | 2019-11-08 11:08 | P.PCN ---
Date of Procedure: 11/08/19 Procedure(s) Performed: BRIEF HISTORY: Patient is a 49-year-old pleasant female scheduled for an elective colonoscopy as a part of screening for colorectal neoplasia. PROCEDURE PERFORMED: Colonoscopy. PREOPERATIVE DIAGNOSIS: Screening for colon cancer. IV sedation per Anesthesia. PROCEDURE: After informed consent was obtained, the patient, was brought into the endoscopy unit. IV sedation was administered by Anesthesia under continuous monitoring. Digital rectal examination was normal. Initially the Olympus CF-160 flexible video colonoscope was then inserted in the rectum, gradually advanced into the cecum without any difficulty. Careful examination was performed as the scope was gradually being withdrawn. Ileocecal valve and the appendiceal orifice were visualized and appeared normal. Prep was fair.. Mucosa of the cecum, ascending colon, transverse colon, descending colon, sigmoid colon, and rectum appeared normal. Retroflexion was performed in the rectum and no lesions were seen. The patient tolerated the procedure well. IMPRESSION: Normal-appearing colon from rectum to cecum with no evidence of colorectal neoplasia. RECOMMENDATIONS: Findings of this examination were discussed with the patient as well as a family. She was advised to have a repeat screening colonoscopy in 10 years.
[2019-11-08 11:26] VITALS: BP 112/59; PULSE 75
== END ==
LOC: ORWHC2ENDO 09:49
PROVIDERS: ATTEND Internal Medicine Gastroenterology
DX: Z12.11 Encounter for screening for malignant neoplasm of colon (principal); F32.9 Major depressive disorder, single episode, unspecified; K08.89 Other specified disorders of teeth and supporting structures; F17.210 Nicotine dependence, cigarettes, uncomplicated; Z79.899 Other long term (current) drug therapy; Z98.890 Other specified postprocedural states; Z96.649 Presence of unspecified artificial hip joint
CPT/HCPCS: 84703; J2704; G0121; 45378

== ENCOUNTER 2020-11-04 20:10 | Inpatient (IN) | payer BC ==
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
--- NOTE | 2020-11-04 21:08 | XR ---
EXAMINATION TYPE: XR chest 1V portable DATE OF EXAM: 11/04/2020 COMPARISON: NONE HISTORY: Fever. TECHNIQUE: Single frontal view of the chest is obtained. FINDINGS: There is no focal air space opacity, pleural effusion, or pneumothorax seen. The cardiac silhouette size is within normal limits. The osseous structures are intact. IMPRESSION: No acute process.
[2020-11-04 21:12] LABS: Basophils # (A) 0.1 k/uL (0-0.2); Basophils % (A) 0 %; Eosinophils # (A) 0.4 k/uL (0-0.7); Eosinophils % (A) 2 %; HCT 38.6 % (34.0-46.0); HGB 12.9 gm/dL (11.4-16.0); Lymphocytes # (A) 2.3 k/uL (1.0-4.8); Lymphocytes % (A) 12 %; MCH 29.9 pg (25.0-35.0); MCHC 33.4 g/dL (31.0-37.0); MCV 89.7 fL (80.0-100.0); Monocytes # (A) 0.8 k/uL (0-1.0); Monocytes % (A) 4 %; Neutrophils # (A) 15.6 k/uL (1.3-7.7); Neutrophils % (A) 80 %; Platelet Count 453 k/uL (150-450); RBC 4.31 m/uL (3.80-5.40); RDW 12.8 % (11.5-15.5); WBC 19.4 k/uL (3.8-10.6)
[2020-11-04 21:23] LABS: ALT 20 U/L (4-34); AST 18 U/L (14-36); African American GFR (CKD) >90 (>60 ml/min/1.73 sqM); Albumin 3.6 g/dL (3.5-5.0); Alkaline Phosphatase 112 U/L (38-126); Anion Gap 11 mmol/L; Blood Urea Nitrogen 13 mg/dL (7-17); Calcium 9.1 mg/dL (8.4-10.2); Carbon Dioxide 22 mmol/L (22-30); Chloride 102 mmol/L (98-107); Glucose 121 mg/dL (74-99); INR 0.9 (<1.2); Non-African American GFR(CKD) >90 (>60 ml/min/1.73 sqM); Partial Thromboplastin Time 23.7 sec (22.0-30.0); Potassium 3.5 mmol/L (3.5-5.1); Sodium 135 mmol/L (137-145); Total Bilirubin 0.5 mg/dL (0.2-1.3); Total Protein 6.4 g/dL (6.3-8.2)
[2020-11-04 21:39] LABS: C Reactive Protein 153.3 mg/L (<10.0)
[2020-11-04] MEDS ORDERED: ONDANSETRON 4 MG/2 ML VIAL IVP PRN (22:00)
[2020-11-04] MEDS ORDERED: NALOXONE 0.4 MG/ML 1 ML VIAL IV PRN (22:00)
[2020-11-04] MEDS: ACETAMINOPHEN TAB 325 MG TAB PO PRN (22:20)
[2020-11-04 22:31] LABS: Appearance,Urine Clear (Clear); Bacteria,Urine Rare /hpf; Bilirubin,Urine Negative (Negative); Blood,Urine Negative (Negative); Color,Urine Light Yellow; Glucose,Urine (UA) Negative (Negative); Hyaline Casts,Urine 1 /lpf (0-2); Ketones,Urine Negative (Negative); Leukocyte Esterase,Urine Trace (Negative); Nitrite,Urine Negative (Negative); Protein,Urine Negative (Negative); RBC,Urine 2 /hpf (0-5); Specific Gravity,Urine 1.007 (1.001-1.035); Sperm,Urine Rare /hpf; Squamous Epithelial Cell,Urine 2 /hpf (0-4); Urobilinogen,Urine <2.0 mg/dL (<2.0); WBC,Urine 2 /hpf (0-5)
[2020-11-05] MEDS: SODIUM CHLORIDE 0.9% 1,000 ML IV SCH ×2 (00:01→10:35)
[2020-11-05] MEDS: ACETAMINOPHEN TAB 325 MG TAB PO PRN ×2 (06:22→14:45)
[2020-11-05] MEDS ORDERED: Potassium Replacement Protocol 1 EACH MISC MISCELLANE PRN (09:48)
[2020-11-05] MEDS ORDERED: Magnesium Replacement Protocol 1 EACH MISC MISCELLANE PRN (09:49)
[2020-11-05] MEDS ORDERED: clonazePAM 0.5 MG TAB PO PRN (09:53)
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
[2020-11-05] MEDS: ESCITALOPRAM 20 MG TAB PO SCH (10:34)
[2020-11-05] MEDS: GABAPENTIN 300 MG CAP PO SCH ×3 (10:34→21:16)
[2020-11-05] MEDS: PANTOPRAZOLE 40 MG/10 ML VIAL IVP SCH (10:35)
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
[2020-11-05] MEDS ORDERED: VANCOMYCIN IV PER PHARMACY 1 EACH MISC MISCELLANE PRN (15:16)
[2020-11-05] MEDS ORDERED: CEFEPIME 2 GM in SODIUM CHLORIDE 0.9% 100 ML IVPB ONE (15:30)
[2020-11-05] MEDS: IOPAMIDOL CONTRAST (ORAL USE) VIAL PO PRN ×2 (15:36→16:35)
[2020-11-05] MEDS ORDERED: VANCOMYCIN 1,000 MG in SODIUM CHLORIDE 0.9% 250 ML IVPB SCH (16:00)
--- NOTE | 2020-11-05 17:27 | CT ---
EXAMINATION TYPE: CT abdomen pelvis w con DATE OF EXAM: 11/05/2020 COMPARISON: None available. HISTORY: Fevers, diarrhea, leukocytosis. CT DLP: 675.8 mGycm Automated exposure control for dose reduction was used. TECHNIQUE: Helical acquisition of images was performed from the lung bases through the pelvis. CONTRAST: Performed with Oral Contrast and with IV Contrast, patient injected with 100 mL of Isovue 300. FINDINGS: LUNG BASES: No significant abnormality is appreciated. LIVER/GB: No significant abnormality is appreciated. PANCREAS: No significant abnormality is seen. SPLEEN: No significant abnormality is seen. ADRENALS: No significant abnormality is seen. KIDNEYS: No significant abnormality is seen. FREE AIR: No free air is visualized. RETROPERITONEAL ADENOPATHY: None visualized REPRODUCTIVE ORGANS: No significant abnormality is seen URINARY BLADDER: No significant abnormality is seen. PELVIC ADENOPATHY: None visualized. OSSEOUS STRUCTURES: No acute abnormality is seen. T11 vertebroplasty and right hip arthroplasty note d. BOWEL: Mild to moderate wall thickening and mucosal enhancement of the ascending and proximal transv erse colon. No evidence of bowel obstruction, free air or fluid. OTHER: None. IMPRESSION: WALL THICKENING AND MUCOSAL ENHANCEMENT OF THE ASCENDING/TRANSVERSE COLON, COMPATIBLE WITH COLITIS IN THE APPROPRIATE CLINICAL SETTING. CORRELATION WITH COLONOSCOPY MAY BE OBTAINED INDICATED.
--- NOTE | 2020-11-05 19:08 | XR ---
RESULT: HISTORY: right hip pain and recent injection TECHNIQUE: 2 views of the right hip were obtained. COMPARISON: 05/09/2016. FINDINGS: There is no acute fracture or dislocation. Prior right hip arthroplasty seen. IMPRESSION: No acute osseous abnormality.
[2020-11-05 21:22] LABS: Ferritin 93.9 ng/mL (10.0-291.0)
[2020-11-05 21:26] LABS: % Iron Saturation 3.26 (12.00-45.00)
[2020-11-05] MEDS: metroNIDAZOLE 500 MG TAB PO SCH (21:49)
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
[2020-11-06] MEDS: CEFEPIME 2 GM in SODIUM CHLORIDE 0.9% 100 ML IVPB SCH ×3 (00:40→22:02)
[2020-11-06] MEDS: metroNIDAZOLE 500 MG TAB PO SCH ×3 (08:32→22:02)
[2020-11-06] MEDS: ESCITALOPRAM 20 MG TAB PO SCH (08:32)
[2020-11-06] MEDS: GABAPENTIN 300 MG CAP PO SCH ×3 (08:32→22:02)
[2020-11-06] MEDS: PANTOPRAZOLE 40 MG/10 ML VIAL IVP SCH (08:33)
[2020-11-06 11:05] LABS: Basophils # (A) 0.09 X 10*3/uL (0.00-0.10); Basophils % (A) 0.5 %; Eosinophils % (A) 2.8 %; HCT 40.6 % (37.2-46.3); HGB 13.1 g/dL (12.0-15.0); Lymphocytes # (A) 3.49 X 10*3/uL (0.90-5.00); Lymphocytes % (A) 19.9 %; MCHC 32.3 g/dL (32.0-37.0); MCV 92.9 fL (80.0-97.0); Mean Platelet Volume 9.9 fL (9.5-12.2); Monocytes # (A) 1.18 X 10*3/uL (0.20-1.00); Monocytes % (A) 6.7 %; Neutrophils # (A) 12.22 X 10*3/uL (1.80-7.70); Neutrophils % (A) 69.7 %; Platelet Count 494 X 10*3/uL (140-440); RBC 4.37 X 10*6/uL (4.10-5.20); RDW 12.3 % (11.5-14.5); WBC 17.55 X 10*3/uL (4.50-10.00)
[2020-11-06 14:00] LABS: African American GFR (CKD) 116.3 (60.0-200.0); Anion Gap 12.6 mmol/L (4.00-12.00); Calcium 8.9 mg/dL (8.7-10.3); Carbon Dioxide 22.4 mmol/L (21.6-31.8); Magnesium 2.1 mg/dL (1.5-2.4); Non-African American GFR(CKD) 100.3 (60.0-200.0); Potassium 4.3 mmol/L (3.5-5.5)
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
--- NOTE | 2020-11-06 17:04 | P.PN ---
Subjective Progress Note Date: 11/06/20 Principal diagnosis: fever unknown origin, leukocytosis, thombocythemia In f/u today pt has same c/o, generalized fatigue, malaise, her hip pain is severe. Denies any bleeding Objective - Vital Signs Vital signs: Vital Signs Temp 98.3 F 11/06/20 14:25 Pulse 86 11/06/20 14:25 Resp 16 11/06/20 14:25 BP 104/68 11/06/20 14:25 Pulse Ox 98 11/06/20 14:25 Intake & Output 11/05/20 11/06/20 11/06/20 18:59 06:59 18:59 Intake Total 80 536 Output Total 1 1 1 Balance 79 -1 535 Intake: IV 80 Sodium Chloride 0.9% 1, 80 000 ml @ 20 mls/hr IV . Q24H [facility] Rx#:[id number] Oral 536 Output: Stool 1 1 1 Other: Voiding Method Toilet Toilet # Voids 1 1 # Bowel Movements 1 - Constitutional General appearance: Present: average body habitus, cooperative, no acute distress - EENT Eyes: Present: anicteric sclerae, EOMI ENT: Present: hearing grossly normal - Respiratory Respiratory: bilateral: CTA - Cardiovascular Rhythm: regular Heart sounds: normal: S1, S2 Abnormal Heart Sounds: Absent: systolic murmur, diastolic murmur, rub, S3 Gallop, S4 Gallop, click, other - Peripheral edema leg Peripheral Edema: bilateral: None - Gastrointestinal General gastrointestinal: Present: normal bowel sounds, soft. Absent: absent bowel sounds, decreased bowel sounds, distended, hepatomegaly, hyperactive bowel sounds, organomegaly, rigid, scaphoid, splenomegaly, tenderness, umbilical hernia, ventral hernia - Musculoskeletal Musculoskeletal: Present: strength equal bilaterally - Psychiatric Psychiatric: Present: A&O x's 3, appropriate affect, intact judgment & insight - Labs CBC & Chem 7: 11/06/20 04:56 11/06/20 04:56 Labs: Abnormal Lab Results - Last 24 Hours (Table) 11/05/20 11/05/20 11/06/20 Range/Units 11:15 11:15 04:56 WBC (4.50-10.00) X 10*3/uL Plt Count (140-440) X 10*3/uL Immature Gran # (0.00-0.04) X 10*3/uL Neutrophils # (1.80-7.70) X 10*3/uL Monocytes # (0.20-1.00) X 10*3/uL Eosinophils # (0.04-0.35) X 10*3/uL ESR 60 H (0-30) mm/Hr Anion Gap 12.60 H (4.00-12.00) mmol/L BUN 7.0 L (9.0-27.0) mg/dL BUN/Creatinine Ratio 10.00 L (12.00-20.00) Ratio Iron 9 L (50-170) ug/dL % Saturation 3.26 L (12.00-45.00) 11/06/20 Range/Units 04:56 WBC 17.55 H (4.50-10.00) X 10*3/uL Plt Count 494 H (140-440) X 10*3/uL Immature Gran # 0.07 H (0.00-0.04) X 10*3/uL Neutrophils # 12.22 H (1.80-7.70) X 10*3/uL Monocytes # 1.18 H (0.20-1.00) X 10*3/uL Eosinophils # 0.50 H (0.04-0.35) X 10*3/uL ESR (0-30) mm/Hr Anion Gap (4.00-12.00) mmol/L BUN (9.0-27.0) mg/dL BUN/Creatinine Ratio (12.00-20.00) Ratio Iron (50-170) ug/dL % Saturation (12.00-45.00) Microbiology - Last 24 Hours (Table) 11/06/20 09:00 Stool Culture - Preliminary Stool 11/04/20 20:58 Blood Culture - Preliminary Blood No Growth after 24 hours - Imaging and Cardiology CT scan - abdomen: report reviewed CT scan - pelvis: report reviewed Assessment and Plan (1) Neutrophilic leukocytosis Current Visit: Yes Status: Acute Priority: High Code(s): D72.9 - DISORDER OF WHITE BLOOD CELLS, UNSPECIFIED SNOMED Code(s): 738880399 (2) Thrombocytosis Current Visit: Yes Status: Acute Priority: High Code(s): D47.3 - ESSENTIAL (HEMORRHAGIC) THROMBOCYTHEMIA SNOMED Code(s): 3477174 Plan: Patient's labs reviewed showing WBC of 19.4 with increase in ANC. CRP is elevated, mild thrombocythemia noted. Reported fevers, chills, with a low grade fever for week or so prior to admit. History, exam and laboratory workup at this time do appear to be most consistent with a reactive process to an infection possibly. CT ordered by ID, reviewed. Agree with GI consult Iron deficiency-no IV iron right now due to unknown source/possible infection. No oral until GI has seen pt and decided on any procedures. Inflammatory markers reviewed, negative. CBC stable at this time.
[2020-11-06] MEDS: SODIUM CHLORIDE 0.9% 1,000 ML IV SCH (22:03)
--- NOTE | 2020-11-06 23:00 | PN ---
PROGRESS NOTE DATE OF SERVICE: 11/06/2020. REASON FOR FOLLOW UP: Fever and colitis. INTERVAL HISTORY: Patient is currently afebrile. Did have a low grade fever of 99.8 this morning. The patient denies any chest pain. No shortness of breath. No cough. No vomiting. Does still have some diarrhea. No urinary symptoms. Complaining of pain to the right hip area. PHYSICAL EXAMINATION: Blood pressure 111/75. Pulse 93. Temperature 98.5. General description: Middle-aged female lying in bed in no distress. Respiratory system: Unlabored breathing, clear to auscultation anteriorly. HEART: S1, S2. Regular rate and rhythm. Abdomen soft, no tenderness. LABORATORY DATA: Hemoglobin 13.1, white count 17.5, creatinine 0.7. DIAGNOSTIC IMPRESSION AND PLAN: 1. Patient with a fever, elevated white count and did have predominantly diarrhea and right hip pain with recent right hip injection. X-rays of the hip did not show any abnormality. CT was suggestive of colitis. This patient is covered with Rocephin and Flagyl to continue while waiting for cultures to finalize. May benefit from Ortho evaluation and possible x-ray of the right hip to further identify source of infection. Continue supportive care. MMODL / IJN: [id number] /
[2020-11-07 02:08] VITALS: RESP 16
[2020-11-07 07:37] VITALS: TEMP 98
[2020-11-07] MEDS: metroNIDAZOLE 500 MG TAB PO SCH (07:45)
[2020-11-07] MEDS: GABAPENTIN 300 MG CAP PO SCH (07:46)
[2020-11-07] MEDS: PANTOPRAZOLE 40 MG/10 ML VIAL IVP SCH (07:46)
[2020-11-07] MEDS: ESCITALOPRAM 20 MG TAB PO SCH (07:46)
[2020-11-07] MEDS: ACETAMINOPHEN TAB 325 MG TAB PO PRN (07:46)
[2020-11-07] MEDS: CEFEPIME 2 GM in SODIUM CHLORIDE 0.9% 100 ML IVPB SCH (08:06)
[2020-11-07 08:48] LABS: Basophils # (A) 0.05 X 10*3/uL (0.00-0.10); Basophils % (A) 0.5 %; Eosinophils # (A) 0.55 X 10*3/uL (0.04-0.35); Eosinophils % (A) 5.2 %; HCT 36.9 % (37.2-46.3); HGB 11.6 g/dL (12.0-15.0); Lymphocytes # (A) 2.49 X 10*3/uL (0.90-5.00); Lymphocytes % (A) 23.7 %; MCH 29.4 pg (27.0-32.0); MCHC 31.4 g/dL (32.0-37.0); MCV 93.7 fL (80.0-97.0); Mean Platelet Volume 9.7 fL (9.5-12.2); Monocytes # (A) 0.78 X 10*3/uL (0.20-1.00); Monocytes % (A) 7.4 %; Neutrophils # (A) 6.57 X 10*3/uL (1.80-7.70); Neutrophils % (A) 62.5 %; Platelet Count 419 X 10*3/uL (140-440); RBC 3.94 X 10*6/uL (4.10-5.20); RDW 12.2 % (11.5-14.5); WBC 10.51 X 10*3/uL (4.50-10.00)
[2020-11-07 09:30] LABS: African American GFR (CKD) 122.3 (60.0-200.0); Anion Gap 7.8 mmol/L (4.00-12.00); Calcium 8.8 mg/dL (8.7-10.3); Carbon Dioxide 27.2 mmol/L (21.6-31.8); Non-African American GFR(CKD) 105.5 (60.0-200.0); Potassium 4.1 mmol/L (3.5-5.5)
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
[2020-11-07 14:56] VITALS: BP 106/68; PULSE 78
--- NOTE | 2020-11-07 15:10 | P.PN ---
Subjective Progress Note Date: 11/07/20 Principal diagnosis: Diarrhea, colitis Seen and examined sitting up in her bed. She states she had a good night sleep. Denies any diarrhea through the night. States she has only had a small amount this morning. She denies any blood in her stool. Denies any abdominal pain, n ausea, or vomiting. She is tolerating her liquid diet. Denies any fevers through the night or this morning. Objective - Vital Signs Vital signs: Vital Signs Temp 98 F 11/07/20 07:00 Pulse 80 11/07/20 07:00 Resp 16 11/07/20 08:00 BP 111/74 11/07/20 07:00 Pulse Ox 98 11/07/20 07:00 Intake & Output 11/06/20 11/07/20 11/07/20 18:59 06:59 18:59 Intake Total 1036 500 Output Total 1 4 Balance 1035 -4 500 Intake: Oral 1036 500 Output: Stool 1 4 Other: Voiding Method Toilet Toilet # Voids 1 # Bowel Movements 1 1 - Exam General appearance: The patient is alert, oriented, appears in no acute distress. HET: Head is normocephalic and atraumatic. Conjunctiva pink. Sclera anicteric. Neck: Supple without lymphadenopathy. Abdomen: Soft, nontender, nondistended with bowel sounds. No guarding or rig idity. Extremities: Normal skin color and turgor. No pedal edema Skin: No rashes, no jaundice Neurological: No focal deficits. Alert and oriented 3. - Labs CBC & Chem 7: 11/07/20 05:09 11/07/20 05:09 Labs: Abnormal Lab Results - Last 24 Hours (Table) 11/06/20 11/06/20 11/06/20 Range/Units 04:56 04:56 17:00 WBC 17.55 H (4.50-10.00) X 10*3/uL RBC (4.10-5.20) X 10*6/uL Hgb (12.0-15.0) g/dL Hct (37.2-46.3) % MCHC (32.0-37.0) g/dL Plt Count 494 H (140-440) X 10*3/uL Immature Gran # 0.07 H (0.00-0.04) X 10*3/uL Neutrophils # 12.22 H (1.80-7.70) X 10*3/uL Monocytes # 1.18 H (0.20-1.00) X 10*3/uL Eosinophils # 0.50 H (0.04-0.35) X 10*3/uL Anion Gap 12.60 H (4.00-12.00) mmol/L BUN 7.0 L (9.0-27.0) mg/dL BUN/Creatinine Ratio 10.00 L (12.00-20.00) Ratio Stool Lactoferrin POSITIVE A (NEGATIVE) 11/07/20 11/07/20 Range/Units 05:09 05:09 WBC 10.51 H (4.50-10.00) X 10*3/uL RBC 3.94 L (4.10-5.20) X 10*6/uL Hgb 11.6 L (12.0-15.0) g/dL Hct 36.9 L (37.2-46.3) % MCHC 31.4 L (32.0-37.0) g/dL Plt Count (140-440) X 10*3/uL Immature Gran # 0.07 H (0.00-0.04) X 10*3/uL Neutrophils # (1.80-7.70) X 10*3/uL Monocytes # (0.20-1.00) X 10*3/uL Eosinophils # 0.55 H (0.04-0.35) X 10*3/uL Anion Gap (4.00-12.00) mmol/L BUN 6.0 L (9.0-27.0) mg/dL BUN/Creatinine Ratio 10.00 L (12.00-20.00) Ratio Stool Lactoferrin (NEGATIVE) Microbiology - Last 24 Hours (Table) 11/04/20 20:58 Blood Culture - Preliminary Blood No Growth after 48 hours 11/06/20 09:00 Stool Culture - Preliminary Stool Assessment and Plan (1) Colitis Narrative/Plan: 50-year-old female presenting with fatigue, weakness, fevers and chills. Vision has significant leukocytosis and is being seen by the hematology/oncology service. She has chronic loose bowel movements over the past few years but reports that these have worsened in the past few weeks. Colonoscopy is up-to-date for screening last performed in 10/2019 which was normal. She denies any signs or symptoms of GI bleeding. Currently on broad-spectrum antibiotic therapy. Unclear etiology, may be related to infectious etiology given the acutely worsening diarrhea that the patient reports, colonoscopy is up-to-date and inflammatory process is felt to be less likely currently she is improving w ith antibiotics. Patient improvement with diarrhea. Afebrile. Stool studies negative to date. Stool culture pending. Current Visit: Yes Status: Acute Code(s): K52.9 - NONINFECTIVE GASTROENTERITIS AND COLITIS, UNSPECIFIED SNOMED Code(s): 59106383 Plan: Supportive care Okay for her to advance diet as tolerated Continue to monitor stool output Extensive stool studies ordered, negative to date Continue broad-spectrum antibiotic therapy Hematology/oncology and infectious disease following the patient Okay for discharge when otherwise stable from Gastroenterology standpoint If patient continues to have altered bowel function may benefit from repeat colonoscopy with random biopsies to rule out microscopic colitis, this was discussed with patient Thank you for allowing us to participate in the care of the patient Dr. Burleson I agree with the dictator's note, documented as a scribe by Penelope Livingston.
--- NOTE | 2020-11-07 15:58 | PN ---
PROGRESS NOTE DATE OF SERVICE: 11/07/2020 REASON FOR FOLLOWUP: Fever and colitis. INTERVAL HISTORY: The patient is currently afebrile. The patient is breathing comfortably. The patient denies having any abdominal pain. No nausea, no vomiting. The patient's diarrhea has slowed down. No blood or mucus in the stool. Still complaining of pain to the right hip area and has been evaluated by the orthopedic the patient had already been discharged by the admitting team and is asking for discharge antibiotics. Stool culture is still pending. PHYSICAL EXAMINATION: Blood pressure 106/68 with pulse of 78, temperature 98. He is 97% on room air. General description is a middle-aged female lying in bed in no distress. RESPIRATORY SYSTEM: Unlabored breathing. Clear to auscultation anteriorly. HEART: S1, S2. Regular rate and rhythm. ABDOMEN: Soft. No tenderness. LABS: Hemoglobin is 11.3, white count 10.5. BUN of 6, creatinine 0.6. DIAGNOSTIC IMPRESSION AND PLAN: Patient with a fever, diarrhea and evidence of colitis on the CT. Clinically responded to cefepime and Flagyl. The patient will be transitioned to oral Ceftin and Flagyl for 10 days and close outpatient followup. MMODL / IJN: [id number] /
--- NOTE | 2020-11-13 12:04 | CDI ---
Documentation Clarification Form Date: 11/08/2020 02:40:00 PM From: Brianda Damon CCS Phone: If you have a question about this query, please contact Raquel Servin Assistant Maintenance Manager at [phone] between 8am and 5pm Admit Date: 11/06/2020 09:31:00 AM Patient Name: Rivera Teran Visit Number: [id number] Discharge Date: 11/07/2020 04:14:00 PM ATTENTION: The Clinical Documentation Specialists (CDI) and [facility] Coding Staff appreciate your assistance in clarifying documentation. Please respond to the clarification below the line at the bottom and electronically sign. The CDI & [facility] Coding staff will review the response and follow-up if needed. Please note: Queries are made part of the Legal Health Record. If you have any questions, please contact the author of this message via ITS. Dr. Eduard Hendrix The patients principal diagnosis has not been clearly identified and requires clarification. Observation admit dated 11/04/20- ED documents SIRS, H&P documents possible sepsis Admit from Observation to Inpatient 11/06/20- Consult for colitis and right hip pain 11/07 Consult documents: Right hip pain status post right total hip arthroplasty 11/06 Consult documents: Colitis currently on broad spectrum antibiotic, an inflammatory process is less likely, she is improving on antibiotics DS documents: Possible sepsis with Fevers of unknown origin, accompanied by increased weakness, leukocytosis, increased platelets, etiology unclear.Outpatient workup inconclusive, possibly related to right hip-septic arthritis, though no evidence of cellulitis.CT suggestive of colitis, possibly ischemic colitis. He/She presented with the following possible sepsis, colitis, septic arthritis. History/Risk factors: S/P R hip replacement, Septic arthritis, Colitis Clinical Indicators: Elevated WBC, Fever Lab findings: WBC 19.4-2/8, 17.55-2/10, 10.51-11/07 Radiology Hip:There is no acute fracture or dislocation.Prior right hip arthroplasty seen. CT Abdomen: MPRESSION: WALL THICKENING AND MUCOSAL ENHANCEMENT OF THE ASCENDING/TRANSVERSE COLON, COMPATIBLE WITH COLITIS IN THE APPROPRIATE CLINICAL SETTING.CORRELATION WITH COLONOSCOPY MAY BE OBTAINED INDICATED. Vital Signs: BP 98/66, Temp 99.4, MO 113, RR 18, O2 Sat 95 Treatment: Maxipime 2 gm IV, Vancomycin 1,000 mg IVPB, Flagyl 500 mg PO Consults: Sarah Beth Martin In your professional opinion, can you please clarify which diagnosis, after study, accounted for the patients presenting symptoms and was the reason chiefly responsible for the admission Sepsis due to septic arthritis with infected joint implant Sepsis due to septic arthritis without infection of joint implant Sepsis due to infectious colitis Sepsis ruled out Sepsis due to other Other Unable to determine Sepsis due to infectious colitis MTDD
== END 2020-11-07 16:14 | disposition home or self-care (01) | DRG 872 ==
LOC: EC 20:10 → 6NMEDSUR 22:00 → OBSVTOIN 11-06 09:31
PROVIDERS: ADMIT Family Medicine; ATTEND Family Medicine
DX: A41.9 Sepsis, unspecified organism (principal); M00.9 Pyogenic arthritis, unspecified; A09 Infectious gastroenteritis and colitis, unspecified; I95.9 Hypotension, unspecified; D47.3 Essential (hemorrhagic) thrombocythemia; Z20.822 Contact with and (suspected) exposure to COVID-19; F17.210 Nicotine dependence, cigarettes, uncomplicated; F32.9 Major depressive disorder, single episode, unspecified; E61.1 Iron deficiency; F41.9 Anxiety disorder, unspecified; Z71.6 Tobacco abuse counseling; Z79.899 Other long term (current) drug therapy; Z96.641 Presence of right artificial hip joint; Z98.890 Other specified postprocedural states; Z87.311 Personal history of (healed) other pathological fracture; Z82.49 Family history of ischemic heart disease and other diseases of the circulatory system; Z83.3 Family history of diabetes mellitus; Z80.52 Family history of malignant neoplasm of bladder; Z83.438 Family history of other disorder of lipoprotein metabolism and other lipidemia
CPT/HCPCS: 36415; 71045; 73502; 74177; 80048; 80053; 81001; 82728; 83540; 83550; 83605; 83630; 83735; 84145; 85025; 85610; 85652; 85730; 86038; 86140; 86431; 87040; 87045; 87046; 87324; 87328; 87329; 87635; 99284

== ENCOUNTER 2021-03-26 09:24 | Day surgery (SDC) | payer BC ==
[2021-03-24 11:29] VITALS: BMI 26.2
[~2021-03-26 09:24] MED LIST changes: +LIDOCAINE 1% (10MG/ML) FOR IV START INTRADERMA PRN; -LIDOCAINE 1% 20 ML VIAL (10MG/ML) FOR IV START INTRADERMA PRN; -PROPOFOL 10 MG/ML 20 ML VIAL IV ONE
[2021-03-26 09:48] VITALS: RESP 18; TEMP 96.5
[2021-03-26] MEDS ORDERED: PROPOFOL 10 MG/ML 20 ML VIAL IV ONE (10:28)
[2021-03-26] MEDS ORDERED: LIDOCAINE 1% INJ 10MG/ML (20 ML MDV) ONE (10:28)
--- NOTE | 2021-03-26 10:45 | P.PCN ---
Date of Procedure: 03/26/21 Procedure(s) Performed: BRIEF HISTORY: Patient is a 50-year-old, pleasant, white female scheduled for an upper endoscopy as a part of evaluation of GERD and iron deficiency anemia. She had a colonoscopy last year that was unremarkable.. PROCEDURE PERFORMED: Esophagogastroduodenoscopy with biopsy. PREOPERATIVE DIAGNOSIS: GERD/iron deficiency anemia. IV sedation per anesthesia. PROCEDURE: After informed consent was obtained, the patient was brought into the endoscopy unit. IV sedation was administered by Anesthesia under continuous monitoring. Initially the Olympus GIF-140 video endoscope was inserted into the mouth. Esophagus intubated without any difficulty. It was gradually advanced into the stomach and duodenum and carefully examined. The bulb and the second part of the duodenum appeared normal. Abscesses were done from this area to rule out celiac disease. The scope at this time was withdrawn to the stomach, adequately insufflated with air, and upon careful examination, mucosa of the antrum, multiple scattered erosions and biopsies were done from this area. The body the stomach appeared normal. In the fundus of the stomach there was a 5 mm probably was a polyp that was biopsied. Rest of the body, cardia and the fundus appeared normal. The scope was then withdrawn into the esophagus. The GE junction was located at 39 cm from the incisors. There were linear erosions in the distal esophagus consistent with LA grade B reflux esophagitis. Small hiatal hernia noted. The rest of the esophagus appeared normal. Biopsies were done from the distal esophagus and the patient tolerated the procedure well. IMPRESSION: 1. Antral erosive gastritis2. 2. Linear erosions or esophagus consistent with LA grade B reflux esophagitis and small hiatal hernia. 3. 5 mm gastric fundal polyp. RECOMMENDATIONS: The findings of this examination were discussed with the patient as well as a family. She was advised to follow with the biopsy results. She will continue with omeprazole 20 mg daily and continue to follow antireflux measures.
[2021-03-26 11:19] VITALS: BP 114/71; PULSE 92
== END 2021-03-26 11:25 | disposition home or self-care (01) ==
LOC: ORWHC2ENDO 09:24
PROVIDERS: ATTEND Internal Medicine Gastroenterology
DX: K29.80 Duodenitis without bleeding (principal); K29.50 Unspecified chronic gastritis without bleeding; K21.00 Gastro-esophageal reflux disease with esophagitis, without bleeding; D50.9 Iron deficiency anemia, unspecified; K44.9 Diaphragmatic hernia without obstruction or gangrene; K31.7 Polyp of stomach and duodenum; Z79.82 Long term (current) use of aspirin; Z79.891 Long term (current) use of opiate analgesic; Z79.899 Other long term (current) drug therapy; F17.210 Nicotine dependence, cigarettes, uncomplicated; F32.9 Major depressive disorder, single episode, unspecified; Z98.890 Other specified postprocedural states; Z98.891 History of uterine scar from previous surgery
CPT/HCPCS: 88305; 88342; 43239; J2001; J2704

== ENCOUNTER → 2021-12-03 | Outpatient (CLI) | payer BC ==
--- NOTE | 2021-12-03 14:43 | XR ---
EXAMINATION TYPE: XR foot complete RT DATE OF EXAM: 12/03/2021 COMPARISON: NONE HISTORY: Pain TECHNIQUE: Three views are submitted. FINDINGS: The osseous structures are intact. There is no acute fracture or dislocation. Joint spaces are p reserved. IMPRESSION: 1. No acute fracture or dislocation. If symptoms persist, follow-up exam in 7 to 10 days could be ob tained.
== END | disposition home or self-care (01) ==
LOC: RADXRMAIN 14:09
PROVIDERS: ATTEND Family Medicine
DX: M79.671 Pain in right foot (principal)

== ENCOUNTER → 2022-02-24 | Outpatient (CLI) | payer BC ==
--- NOTE | 2022-02-25 11:45 | CT ---
EXAMINATION TYPE: CT wrist RT wo con DATE OF EXAM: 02/24/2022 COMPARISON: None HISTORY: fx CT DLP: 183.7 mGycm Automated exposure control for dose reduction was used. Contrast: None Technique: Axial images 2 mm thick sections. Reconstructed images in coronal and sagittal plane. Thre e-D reconstructed images performed on a separate computer by the technologist are presented. FINDINGS: Images are obtained through a fiberglass splint. There is a transverse comminuted fracture of the dis tony metaphyseal radius. Impaction is evident. Alignment appears near-anatomic. Ulna appears intact. N o additional fractures are identified within the [id number]. Soft tissue swelling is at the fractu re level. IMPRESSION: 1. COMMINUTED TRANSVERSE FRACTURE DISTAL METAPHYSEAL RADIUS WITH IMPACTION
== END | disposition home or self-care (01) ==
LOC: RADCTMAIN 17:38
PROVIDERS: ATTEND Orthopaedic Surgery
DX: S52.591A Other fractures of lower end of right radius, initial encounter for closed fracture (principal); X58.XXXA Exposure to other specified factors, initial encounter

== ENCOUNTER → 2023-07-15 | Outpatient (CLI) | payer BC | END | disposition home or self-care (01) | LOC: LABWHC1 11:17 | PROVIDERS: ATTEND Orthopaedic Surgery | DX: M25.551 Pain in right hip (principal); T84.84XA Pain due to internal orthopedic prosthetic devices, implants and grafts, initial encounter; Z96.641 Presence of right artificial hip joint; Y82.9 Unspecified medical devices associated with adverse incidents | CPT/HCPCS: 36415; 85379; 85652; 86140 ==

== ENCOUNTER 2023-08-06 09:05 | Day surgery (SDC) | payer BC ==
[2023-08-06] MEDS ORDERED: ALPRAZolam 0.5 MG TAB PO STA (09:43)
[2023-08-06 11:41] VITALS: BP 102/64; PULSE 65; RESP 18; TEMP 98.1
--- NOTE | 2023-08-06 13:28 | US ---
EXAMINATION TYPE: US guided asp/inj major joint DATE OF EXAM: 08/06/2023 Comparison: Prior to 06/16/2021 radiograph Clinical History: 52-year-old female referred for prosthetic right hip arthrocentesis. T84.84XD,M25.5 [id number],Z96.641 Procedure: 1. Ultrasound of the right hip 2. Aspiration with ultrasound guidance. Technique: The procedure, risks, and alternatives, were discussed with the patient, who requested manisha t we proceed. The consent form was signed, and teach-back occurred. The site/side of the procedure wa s marked with a line with participation by the patient. The accompanying paperwork was verified for c onsistency. A directed history and physical exam was performed prior to the procedure. Medication rec onciliation was performed by ancillary personnel. A critical pause was performed with assisting willie almazan just prior to the procedure and the patient's identity was confirmed using 2 identifiers. Imagin g guidance was utilized to select the precise skin entry point just prior to the procedure. The anterior right hip was prepped and draped in the usual sterile fashion and local 1% lidocaine ane sthesia was instilled. Under ultrasound guidance, an 18 gauge spinal needle was introduced into the p rosthetic right hip joint. Ultrasound confirmed needle tip at the prosthetic femoral head neck juncti on. Aspiration did not yield any fluid. We proceeded with a wash utilizing a 10 mL syringe of sterile saline. Under ultrasound guidance, 8 mL was administered into the hip joint and subsequent aspiratio n yielded a total volume of 11 mL within the syringe. Some admixed slightly thicker yellow/orange-tin ged fluid is noted in the syringe. The needle was then removed. The patient tolerated the procedure w ell. There were no immediate complications. After the procedure, the patient's condition was unchanged. Es timated blood loss was minimal. The patient was instructed on routine postprocedure precautions, incl uding monitoring for signs of infection and avoid water on the area for one day. IMPRESSION: Ultrasound-guided aspiration of the prosthetic right hip. No aspirate on the initial attempt. A wash yielded significant fluid. We have a total 11 mL sample of clear fluid that is yellow/orange-tinged a nd is submitted for laboratory analysis.
[2023-08-07 07:40] LABS: Appearance,BF Hazy (Clear)
== END 2023-08-06 11:30 | disposition home or self-care (01) ==
LOC: RADPROMAIN 09:05
PROVIDERS: ATTEND Orthopaedic Surgery
DX: T84.84XD Pain due to internal orthopedic prosthetic devices, implants and grafts, subsequent encounter (principal); M25.551 Pain in right hip; Z96.641 Presence of right artificial hip joint; Y83.8 Other surgical procedures as the cause of abnormal reaction of the patient, or of later complication, without mention of misadventure at the time of the procedure
CPT/HCPCS: 20611; 87070; 87075; 87205; 89050

== ENCOUNTER → 2025-02-02 | Outpatient (CLI) | payer BC ==
--- NOTE | 2025-02-02 09:26 | US ---
EXAMINATION TYPE: US gallbladder DATE OF EXAM: 02/02/2025 COMPARISON: CT abdomen and pelvis November 05, 2020 CLINICAL INDICATION: Female, 54 years old with history of [id number] ELEVATED LAB VALUES; RUQ tenderness, elevated liver enzymes TECHNIQUE: Grayscale and color Doppler imaging of the right upper quadrant was performed. FINDINGS: EXAM MEASUREMENTS: Liver Length: 21.6 cm Gallbladder Wall: 0.3 cm CBD: 0.7 cm Right Kidney: 12.0 x 4.0 x 4.8 cm Pancreas: Tail obscured by overlying bowel gas Liver: attenuating, enlarged Gallbladder: stone = 2.2cm Evidence for sonographic Armando's sign: no CBD: Prominent Right Kidney: hyperechoic area mid/lower = 0.8 x 0.7 x 0.8cm Persistent hepatomegaly and heterogeneous hyperechoic appearance of liver. This limits evaluation for focal masses. Large shadowing gallstone noted. Tiny 7 mm benign angiomyolipoma suspected right kidne y. IMPRESSION: Hepatomegaly and heterogeneous hyperechoic appearance of liver consistent with known fatt y infiltrated hepatocellular disease is redemonstrated. [facility], , 02/02/2025 9:24 AM
== END | disposition home or self-care (01) ==
LOC: RADUSWWP 08:29
PROVIDERS: ATTEND Family Medicine
DX: R16.0 Hepatomegaly, not elsewhere classified (principal); K76.89 Other specified diseases of liver; R74.8 Abnormal levels of other serum enzymes; R79.89 Other specified abnormal findings of blood chemistry; R10.811 Right upper quadrant abdominal tenderness
CPT/HCPCS: 76705

== ENCOUNTER 2025-03-05 10:51 | Day surgery (SDC) | payer BC ==
[2025-03-02 09:52] VITALS: BMI 28.6
[~2025-03-05 10:51] MED LIST changes: -LACTATED RINGERS 1,000 ML IV SCH
[2025-03-05] MEDS: IV FLUID CONTINUATION 1,000 ML IV ONE ×2 (11:27→14:13)
[2025-03-05] MEDS: LACTATED RINGERS 1,000 ML IV SCH (11:28)
[2025-03-05] MEDS: ACETAMINOPHEN TAB 500 MG TAB PO PRN (11:36)
[2025-03-05] MEDS: DEXAMETHASONE SOD PHOSPHATE 4 MG/ML 1 ML VIAL IV ONE (11:38)
[2025-03-05] MEDS: ONDANSETRON 4 MG/2 ML VIAL IVP ONE (11:38)
[2025-03-05] MEDS: HEPARIN SODIUM,PORCINE 5,000 UNIT/ML 1 ML VIAL SQ PRN (11:38)
[2025-03-05] MEDS: BUPIVACAINE (PF) 0.25% 30 ML VIAL SQ ONE ×3 (12:31→12:56)
[2025-03-05] MEDS ORDERED: fentaNYL (PF) 50 MCG/ML 2 ML AMP ONE (12:38)
[2025-03-05] MEDS ORDERED: PROPOFOL 10 MG/ML 20 ML VIAL IV ONE (12:38)
[2025-03-05] MEDS ORDERED: LIDOCAINE 1% INJ 10MG/ML (20 ML MDV) ONE (12:38)
[2025-03-05] MEDS ORDERED: NEOSTIGMINE 1 MG/ML 10 ML VIAL ONE (12:38)
[2025-03-05] MEDS ORDERED: ROCURONIUM 10 MG/ML (5 ML VIAL) IV ONE (12:38)
[2025-03-05] MEDS ORDERED: GLYCOPYRROLATE 0.2 MG/ML 2 ML VIAL ONE (12:38)
[2025-03-05] MEDS ORDERED: MIDAZOLAM 2 MG/2 ML VIAL ONE (12:38)
[2025-03-05] MEDS ORDERED: SUCCINYLCHOLINE CHLORIDE 200 MG/10 ML VIAL IV ONE (12:38)
[2025-03-05] MEDS ORDERED: KETOROLAC 15 MG/ML 1 ML VIAL ONE (12:38)
[2025-03-05] MEDS: ceFAZolin 2 GM in DEXTROSE 5% IN WATER 50 ML IVPB PRN (12:41)
--- NOTE | 2025-03-05 13:42 | P.OP ---
Date of Procedure: 03/05/25 Procedure(s) Performed: PREOPERATIVE DIAGNOSIS: Chronic cholecystitis POSTOPERATIVE DIAGNOSIS: Same PROCEDURE: Laparoscopic cholecystectomy SURGEON: Daniela EBL: Minimal see anesthesia record ANESTHESIA: Gen. COMPLICATIONS: None OPERATIVE PROCEDURE: The patient was brought and placed on the operating room table in the supine position. The patient was placed under general anesthesia at that time. The abdomen was prepped and draped in the usual sterile fashion. A small vertical infraumbilical incision was made. The fascia was grasped with the Ricardo forceps. The fascia was retracted anteriorly. The Veress needle was advanced into the peritoneal cavity. The saline drop test was normal. Insufflation took place up to 15 mmHg. A 5 mm optical trocar was advanced and the peritoneal cavity. 2 additional 5 mm trochars were placed in the right upper quadrant under direct visualization. A 12 mm trocar was advanced into the epigastric incision site. The gallbladder was retracted superiorly and laterally. The peritoneum overlying the infundibulum was bluntly dissected. The patient's cystic duct was visualized. The junction between the cystic duct common and hepatic duct was identified. The critical view of safety was achieved after blunt dissection. The cystic duct was then divided after placement of 3 12 mm clips on the patient's side and one on the specimen side. The cystic artery was identified and clipped as well. A small vessel was seen along the gallbladder fossa and clipped as well. The gallbladder was then removed from the liver bed using electrocautery. The gallbladder was then removed from the epigastric trocar site with an Endo Catch bag. The gallbladder fossa was irrigated with saline. There was no evidence of any bleeding or biliary drainage seen. The fascia at the 12 millimeter site was closed using a Mynor-She 0 Vicryl stitch. The trochars were then removed. The skin at all 4 sites was closed using a 4-0 Monocryl stitch. Skin glue was utilized on the incision sites. At the end of this procedure the sponge and needle counts were correct. DISPOSITION: Stable to the recovery room
[2025-03-05 13:52] VITALS: TEMP 97.9
[2025-03-05] MEDS: HYDROmorphone 0.5 MG/0.5 ML SYRINGE IVP PRN (14:05)
[2025-03-05 15:41] VITALS: RESP 16
[2025-03-05 15:57] VITALS: BP 103/75; PULSE 100
[2025-03-05] MEDS ORDERED: ACETAMINOPHEN TAB 325 MG TAB PO SCH (18:00)
[2025-03-05] MEDS ORDERED: IBUPROFEN 600 MG TAB PO SCH (21:00)
== END 2025-03-05 16:02 | disposition home or self-care (01) ==
LOC: OR 10:51
PROVIDERS: ATTEND Surgery
DX: K80.10 Calculus of gallbladder with chronic cholecystitis without obstruction (principal); F32.A Depression, unspecified; K21.9 Gastro-esophageal reflux disease without esophagitis; F17.210 Nicotine dependence, cigarettes, uncomplicated; Z79.899 Other long term (current) drug therapy
CPT/HCPCS: 88304; 47562; J2250; J0330; J1644; J1100; J2710; J0690; J2405; J2003; J3010; J1885; J2704; J1171; J0665; J1596